=== PATIENT | female | born 1970 | race Caucasian/White ===

== ENCOUNTER 2016-09-22 21:16 | Observation (INO) | payer OTHER ==
[2016-09-22 23:30] LABS: Basophils % (A) 0 %; CH 29.7; CHCM 33.5; Eosinophils # (A) 0.3 k/uL (0-0.7); Eosinophils % (A) 3 %; HCT 44.7 % (34.0-46.0); HDW 2.75; HGB 14.8 gm/dL (11.4-16.0); Luc # (Auto) 0.17; Luc % (Auto) 2; Lymphocytes # (A) 1.7 k/uL (1.0-4.8); Lymphocytes % (A) 20 %; MCH 29.4 pg (25.0-35.0); Mean Platelet Volume 7.4; Monocytes # (A) 0.3 k/uL (0-1.0); Monocytes % (A) 3 %; Neutrophils # (A) 6.2 k/uL (1.3-7.7); Neutrophils % (A) 72 %; RBC 5.02 m/uL (3.80-5.40); RDW 14.2 % (11.5-15.5); WBC 8.7 k/uL (3.8-10.6); WBC (Perox) 8.55
[2016-09-22 23:46] LABS: ALT 33 U/L (9-52); AST 23 U/L (14-36); Alkaline Phosphatase 65 U/L (38-126); Anion Gap 7 mmol/L; Blood Urea Nitrogen 17 mg/dL (7-17); Calcium 9.2 mg/dL (8.4-10.2); Carbon Dioxide 29 mmol/L (22-30); Chloride 103 mmol/L (98-107); Glucose 102 mg/dL (74-99); Non-African American GFR(MDRD) >60 (>60 ml/min/1.73 sqM); Potassium 4.5 mmol/L (3.5-5.1); Sodium 139 mmol/L (137-145); Total Bilirubin 0.4 mg/dL (0.2-1.3); Total Protein 6.5 g/dL (6.3-8.2)
--- NOTE | 2016-09-22 23:46 | ED ---
Lower Extremity Injury HPI - General Source: patient, EMS Mode of arrival: EMS Limitations: no limitations <Molly Ennis - Last Filed: 09/23/16 02:42> <Jeff Beltran - Last Filed: 09/23/16 03:05> - General Chief Complaint: Extremity Injury, Lower Stated Complaint: KNEE PAIN Time Seen by Provider: 09/22/16 22:30 - History of Present Illness Initial Comments: Patient is a morbidly obese 46-year-old female with chief complaint of bilateral knee pain. Patient reports is if she feels that there is an abscess in her knee. Patient states that her left leg is worse than her right. She states that she hasn't been able to walk for the past 3 days due to the pain. Patient states that she has not been able to walk to take a shower and has to urinate in a bucket next to her bed. Patient states that the pain is worse with flexion and extension of the knee. She denies any foot or ankle pain. Patient reports that she also has some mild chest pain and short of breath. Patient states that this is usual for her. She denies any acute change in this. (Molly Ennis) - Related Data Home Medications Medication Instructions Recorded Confirmed ARIPiprazole [Abilify] 30 mg PO DAILY 06/03/14 09/22/16 Lisdexamfetamine Dimesylate 70 mg PO DAILY 06/03/14 09/22/16 [Vyvanse] Lisinopril [Zestril] 20 mg PO DAILY 06/03/14 09/22/16 Ibuprofen [Motrin] 800 mg PO Q8HR PRN 11/21/14 09/22/16 Furosemide [Lasix] 40 mg PO DAILY 09/22/16 09/22/16 traMADol HCL [Ultram] 50 mg PO Q6HR PRN 09/22/16 09/22/16 Allergies Allergy/AdvReac Type Severity Reaction Status Date / Time lamotrigine [From Lamictal] Allergy Rash/Hives Verified 09/22/16 22:21 Penicillins Allergy Anaphylaxis Verified 09/22/16 22:21 sulfamethoxazole Allergy Anaphylaxis Verified 09/22/16 22:21 [From Bactrim] trimethoprim [From Bactrim] Allergy Anaphylaxis Verified 09/22/16 22:21 Review of Systems ROS Other: All systems not noted in ROS Statement are negative. <Molly Ennis - Last Filed: 09/23/16 02:42> ROS Other: All systems not noted in ROS Statement are negative. <Jamar Beltrane Star - Last Filed: 09/23/16 03:05> ROS Statement: Those systems with pertinent positive or pertinent negative responses have been documented in the HPI. Past Medical History Past Medical History: Fibromyalgia, Hypertension, Osteoarthritis (OA), Seizure Disorder Additional Past Medical History / Comment(s): ddd, neuropathy adhd obesity bipolar History of Any Multi-Drug Resistant Organisms: MRSA Date of last positivie culture/infection: 2006 MDRO Source:: arm/skin Past Surgical History: Tubal Ligation Additional Past Surgical History / Comment(s): EGD Past Anesthesia/Blood Transfusion Reactions: No Reported Reaction Additional Past Anesthesia/Blood Transfusion Reaction / Comment(s): Pt has never recieved blood. Past Psychological History: ADD/ADHD, Anxiety, Bipolar, Depression Additional Psychological History / Comment(s): Pt states her current medication regime is working well for her mental health illnesses. She lives in a farmhouse with her fiancee and her son and his 15 yr old orestes. She is normally independent. She uses no assistive devices. She has no home care. She does not drive. Smoking Status: Current every day smoker Past Alcohol Use History: None Reported Additional Past Alcohol Use History / Comment(s): Pt states she started smoking at age 20. She has quit off and on over the yrs from 6months to a year. She is currently smoking 1/2 ppd. Past Drug Use History: None Reported Additional Drug Use History / Comment(s): Pt has medical marijuana which she states helps her seizure disorder and diabetes. She uses marijuana oil in cookies. - Past Family History Father Family Medical History: No Reported History Mother Family Medical History: Cancer Additional Family Medical History / Comment(s): Mother at age 56 yrs of lung cancer with brain mets. <Molly Ennis - Last Filed: 09/23/16 02:42> General Exam Limitations: no limitations <Molly Ennis - Last Filed: 09/23/16 02:42> General appearance: alert, in no apparent distress Head exam: Present: atraumatic, normocephalic, normal inspection Eye exam: Present: normal appearance, PERRL, EOMI. Absent: scleral icterus, conjunctival injection, periorbital swelling ENT exam: Present: normal exam, mucous membranes moist Neck exam: Present: normal inspection. Absent: tenderness, meningismus, lymphadenopathy Respiratory exam: Present: normal lung sounds bilaterally. Absent: respiratory distress, wheezes, rales, rhonchi, stridor Cardiovascular Exam: Present: regular rate, normal rhythm, normal heart sounds. Absent: systolic murmur, diastolic murmur, rubs, gallop, clicks GI/Abdominal exam: Present: soft, normal bowel sounds. Absent: distended, tenderness, guarding, rebound, rigid Extremities exam: Present: normal inspection, full ROM, normal capillary refill. Absent: tenderness, pedal edema, joint swelling, calf tenderness Back exam: Present: normal inspection Neurological exam: Present: alert, oriented X3, CN II-XII intact Psychiatric exam: Present: normal affect, normal mood Skin exam: Present: warm, dry, intact, normal color. Absent: rash <Jeff Beltran - Last Filed: 09/23/16 03:05> Medical Decision Making - Lab Data Result diagrams: 09/22/16 23:10 09/22/16 23:10 - Radiology Data Radiology results: report reviewed <Molly Ennis - Last Filed: 09/23/16 02:42> - Lab Data Result diagrams: 09/22/16 23:10 09/22/16 23:10 <Jeff Beltran - Last Filed: 09/23/16 03:05> - Medical Decision Making [facility] the ER for reevaluation chest pain, mild risk for heart disease. Initial troponin and EKG are negative. Patient will be admitted for cardiac observation serial troponins latrine anticoagulation. CT negative for PE ( Jeff Beltran) - Lab Data Lab Results 09/22/16 09/22/16 09/22/16 Range/Units 23:10 23:10 23:10 WBC 8.7 (3.8-10.6) k/uL RBC 5.02 (3.80-5.40) m/uL Hgb 14.8 (11.4-16.0) gm/dL Hct 44.7 (34.0-46.0) % MCV 89.0 (80.0-100.0) fL MCH 29.4 (25.0-35.0) pg MCHC 33.0 (31.0-37.0) g/dL RDW 14.2 (11.5-15.5) % Plt Count 223 (150-450) k/uL Neutrophils % 72 % Lymphocytes % 20 % Monocytes % 3 % Eosinophils % 3 % Basophils % 0 % Neutrophils # 6.2 (1.3-7.7) k/uL Lymphocytes # 1.7 (1.0-4.8) k/uL Monocytes # 0.3 (0-1.0) k/uL Eosinophils # 0.3 (0-0.7) k/uL Basophils # 0.0 (0-0.2) k/uL PT (9.0-12.0) sec INR (<1.1) APTT (22.0-30.0) sec D-Dimer 1.46 H (<0.60) mg/L FEU Sodium 139 (137-145) mmol/L Potassium 4.5 (3.5-5.1) mmol/L Chloride 103 (98-107) mmol/L Carbon Dioxide 29 (22-30) mmol/L Anion Gap 7 mmol/L BUN 17 (7-17) mg/dL Creatinine 0.70 (0.52-1.04) mg/dL Est GFR (MDRD) Af Amer >60 (>60 ml/min/1.73 sqM) Est GFR (MDRD) Non-Af >60 (>60 ml/min/1.73 sqM) Glucose 102 H (74-99) mg/dL Calcium 9.2 (8.4-10.2) mg/dL Magnesium 2.1 (1.6-2.3) mg/dL Total Bilirubin 0.4 (0.2-1.3) mg/dL AST 23 (14-36) U/L ALT 33 (9-52) U/L Alkaline Phosphatase 65 (38-126) U/L Total Creatine Kinase (30-135) U/L CK-MB (CK-2) (0.0-2.4) ng/mL CK-MB (CK-2) Rel Index Troponin I (0.000-0.034) ng/mL NT-Pro-B Natriuret Pep pg/mL Total Protein 6.5 (6.3-8.2) g/dL Albumin 3.4 L (3.5-5.0) g/dL Amylase 45 (30-110) U/L 09/22/16 09/22/16 09/22/16 Range/Units 23:10 23:10 23:10 WBC (3.8-10.6) k/uL RBC (3.80-5.40) m/uL Hgb (11.4-16.0) gm/dL Hct (34.0-46.0) % MCV (80.0-100.0) fL MCH (25.0-35.0) pg MCHC (31.0-37.0) g/dL RDW (11.5-15.5) % Plt Count (150-450) k/uL Neutrophils % % Lymphocytes % % Monocytes % % Eosinophils % % Basophils % % Neutrophils # (1.3-7.7) k/uL Lymphocytes # (1.0-4.8) k/uL Monocytes # (0-1.0) k/uL Eosinophils # (0-0.7) k/uL Basophils # (0-0.2) k/uL PT 9.5 (9.0-12.0) sec INR 0.9 (<1.1) APTT 22.4 (22.0-30.0) sec D-Dimer (<0.60) mg/L FEU Sodium (137-145) mmol/L Potassium (3.5-5.1) mmol/L Chloride (98-107) mmol/L Carbon Dioxide (22-30) mmol/L Anion Gap mmol/L BUN (7-17) mg/dL Creatinine (0.52-1.04) mg/dL Est GFR (MDRD) Af Amer (>60 ml/min/1.73 sqM) Est GFR (MDRD) Non-Af (>60 ml/min/1.73 sqM) Glucose (74-99) mg/dL Calcium (8.4-10.2) mg/dL Magnesium (1.6-2.3) mg/dL Total Bilirubin (0.2-1.3) mg/dL AST (14-36) U/L ALT (9-52) U/L Alkaline Phosphatase (38-126) U/L Total Creatine Kinase 38 (30-135) U/L CK-MB (CK-2) 0.6 (0.0-2.4) ng/mL CK-MB (CK-2) Rel Index 1.6 Troponin I <0.012 (0.000-0.034) ng/mL NT-Pro-B Natriuret Pep 95 pg/mL Total Protein (6.3-8.2) g/dL Albumin (3.5-5.0) g/dL Amylase (30-110) U/L 09/23/16 02:04 EKG shows normal sinus rhythm. Can't rule out an anterior infarct. Ventricular rate of 84 bpm. Normal 1 mL 4 ms. QRS ration 70 ms. QTC is QTc is 410/44 ms. No evidence of ST elevation or T-wave inversion. (Molly Ennis) - Radiology Data Bilateral knee shows tricompartmental degeneration bilaterally. Most severe in the medial compartment of the right knee. Bilateral joint effusions. Ultrasound of bilateral lower extremities are negative for DVT. Chest x-ray shows borderline cardiomegaly. No acute pulmonary disease on limited exam. CT PERDOMO chest Nondiagnostic for PE. No aortic dissection. No acute pulmonary disease. (Molly Ennis) Critical Care Time Critical Care Time: Yes Total Critical Care Time: 31 <Jeff Beltran - Last Filed: 09/23/16 03:05> Disposition <Molly Ennis - Last Filed: 09/23/16 02:42> <Jeff Beltran - Last Filed: 09/23/16 03:05> Clinical Impression: Chest pain Disposition: ADMITTED IP TO THIS HOSP Condition: Undetermined Referrals: None,Stated [Primary Care Provider] - 1-2 days
[2016-09-22] MEDS ORDERED: IBUPROFEN 600 MG TAB PO STA (23:49)
[2016-09-22] MEDS ORDERED: SODIUM CHLORIDE 0.9% 1,000 ML IV STA (23:51)
--- NOTE | 2016-09-22 23:57 | XR ---
EXAM: XR Left Knee, 3 views. XR Right Knee, 3 views. CLINICAL HISTORY: Reason: Pain TECHNIQUE: Three views of the bilateral knees. COMPARISON: No relevant prior studies available. FINDINGS/IMPRESSION: No fracture or dislocation of either knee. Tricompartmental degeneration bilaterally, most severe in the medial compartment of the right knee. Bilateral joint effusions.
[2016-09-23 00:12] LABS: Amylase 45 U/L (30-110); Magnesium 2.1 mg/dL (1.6-2.3)
[2016-09-23 00:13] LABS: INR 0.9 (<1.1); Partial Thromboplastin Time 22.4 sec (22.0-30.0); Prothrombin Time 9.5 sec (9.0-12.0)
[2016-09-23 00:14] LABS: Creatine Kinase 38 U/L (30-135)
[2016-09-23 00:27] LABS: Creatine Kinase MB 0.6 ng/mL (0.0-2.4); Troponin I <0.012 ng/mL (0.000-0.034)
--- NOTE | 2016-09-23 01:00 | US ---
EXAM: US Duplex Bilateral Lower Extremity Veins. CLINICAL HISTORY: Reason: Pain TECHNIQUE: Real-time ultrasound scan of the veins of the bilateral lower extremities with color Doppler flow, spectral waveform analysis and compression. COMPARISON: No relevant prior studies available. FINDINGS: Deep veins: Unremarkable. No DVT in the common femoral, femoral or popliteal veins. Superficial veins: Unremarkable. No thrombus in the visualized greater saphenous veins. Soft tissues: No acute findings. No popliteal cyst. IMPRESSION: No deep venous thrombosis in the bilateral lower extremities.
[2016-09-23] MEDS ORDERED: HYDROmorphone 1 MG/ML 1 ML SYRINGE IVP STA (01:05)
[2016-09-23] MEDS ORDERED: ONDANSETRON 4 MG/2 ML VIAL IVP STA (01:05)
--- NOTE | 2016-09-23 01:16 | XR ---
EXAM: XR Chest, 2 Views. CLINICAL HISTORY: Reason: Chest Pain TECHNIQUE: Frontal and lateral views of the chest. COMPARISON: No relevant prior studies available. FINDINGS: Lungs: No clear consolidation on exam that is limited due to obese body habitus. Pleural spaces: Unremarkable. No pneumothorax. Heart: Borderline cardiomegaly. Mediastinum: Unremarkable. Bones: Mild thoracic wedge deformities are favored to be chronic. No acute fracture. IMPRESSION: Borderline cardiomegaly. No clear acute pulmonary disease on limited exam
[2016-09-23] MEDS ORDERED: RX INFO: IV CONTRAST WAS GIVEN 1 EACH MISC MISCELLANE PRN (01:24)
--- NOTE | 2016-09-23 02:37 | CT ---
EXAM: CT Angiography Chest With Intravenous Contrast. CLINICAL HISTORY: Reason: Pain TECHNIQUE: Axial computed tomographic angiography images of the chest with intravenous contrast using pulmonary embolism protocol. CTDI is 24.3 mGy and DLP is 933 mGy-cm This CT exam was performed using one or more of the following dose reduction techniques: automated exposure control, adjustment of the mA and/or kV according to patient size, and/or use of iterative reconstruction technique. MIP reconstructed images were created and reviewed. COMPARISON: No relevant prior studies available. FINDINGS: The examination is nondiagnostic for pulmonary embolism due to bolus timing. No dissection or other acute aortic syndrome. There are calcified pulmonary and mediastinal granulomas. No evidence of acute pulmonary infection. Borderline cardiomegaly. No fracture or suspicious osseous lesion. IMPRESSION: Nondiagnostic for PE. No aortic dissection. No acute pulmonary disease.
[2016-09-23] MEDS ORDERED: NALOXONE 0.4 MG/ML 1 ML VIAL IV PRN (03:06)
[2016-09-23] MEDS ORDERED: ONDANSETRON 4 MG/2 ML VIAL IVP PRN (03:06)
[2016-09-23] MEDS ORDERED: traMADol 50 MG TAB PO PRN (03:08)
[2016-09-23] MEDS ORDERED: SODIUM CHLORIDE 0.9% 1,000 ML IV SCH (03:15)
[2016-09-23] MEDS: HYDROmorphone 1 MG/ML 1 ML SYRINGE IV PRN ×3 (04:11→09:38)
[2016-09-23 04:30] VITALS: BMI 53.2
[2016-09-23] MEDS: KETOROLAC 30 MG/ML 1 ML VIAL IVP PRN ×2 (05:26→11:53)
[2016-09-23 06:10] LABS: Creatine Kinase 32 U/L (30-135)
[2016-09-23 06:24] LABS: Creatine Kinase MB 0.5 ng/mL (0.0-2.4); Troponin I <0.012 ng/mL (0.000-0.034)
[2016-09-23 07:45] VITALS: BP 129/72; PULSE 70; RESP 18; TEMP 98.2
[2016-09-23] MEDS ORDERED: ARIPiprazole 15 MG TAB PO SCH (09:00)
[2016-09-23] MEDS ORDERED: LISINOPRIL 20 MG TAB PO SCH (09:00)
[2016-09-23] MEDS ORDERED: PANTOPRAZOLE 40 MG/10 ML VIAL IV SCH (09:00)
[2016-09-23] MEDS ORDERED: NON-FORMULARY DRUG (Lisdexamfetamine Dimesylate [Vyvanse] 70 MG) PO SCH (09:00)
[2016-09-23] MEDS ORDERED: ENOXAPARIN 40 MG/0.4 ML SYRINGE SQ SCH (09:00)
[2016-09-23] MEDS ORDERED: FUROSEMIDE 40 MG TAB PO SCH (09:00)
--- NOTE | 2016-09-23 09:16 | CONS ---
DATE OF CONSULTATION: Ava is a 46-year-old lady with history of arthritis, hypertension who came to hospital primarily complaining of bilateral knee pain and incidentally complained of both the chest discomfort that she had over the last one month and chest discomfort is reproducible and seems musculoskeletal. At the time of my evaluation, she is pain free and hemodynamically stable. She has had 2 sets of cardiac enzymes that are both within normal limits. EKG that did not reveal any ischemic changes. She had a D-dimer that was elevated; hence, she had a CTA that was negative for dissection and pulmonary embolism. EKG does not reveal acute ischemic changes. She had a venous duplex study that is negative for DVT. Past medical history is significant for hypertension. Medications include tramadol, Zestril, Motrin, Lasix and Abilify. ALLERGIES: There are multiple drug allergies including PENICILLIN, BACTRIM, LAMICTAL. Family history is significant for coronary artery disease. SOCIAL HISTORY: Denies smoking. REVIEW OF SYSTEMS: HEENT: Unremarkable. CARDIAC: As described above. RESPIRATORY: Negative. GI: Negative. GENITOURINARY: Negative. MUSCULOSKELETAL: Significant for joint pain. PSYCHOSOCIAL: Negative. ENDOCRINE: Negative. DERMATOLOGY: Negative. CONSTITUTIONAL: Negative. ONCOLOGICAL: Negative. The rest of the system review is not relevant. On exam, comfortable at rest. Vital signs are stable. There is no jugular venous distention. Carotid upstroke is normal. There is no bruit. Chest exam reveals good air entry bilaterally. Heart exam reveals first and second heart sounds. No gallop. No murmur, no rub. Abdomen is soft, nontender. Exam of the extremities did not reveal any edema. Peripheral pulses are felt. HOME HEALTH RN exam did not reveal focal neurological deficits. Labs show that tropes are negative. Creatinine is 0.7. Potassium is 4.5. Hemoglobin is 14.8. D-dimer is slightly elevated. CT chest is negative. ASSESSMENT: 1. Atypical chest pain. 2. Bilateral knee pain, probably related to arthritis. PLAN: From cardiac standpoint, she is doing well and does not require further workup at this time. I will obtain a 2-D echo on her. I will consider an outpatient stress test if necessary.
[2016-09-23] MEDS ORDERED: methylPREDNISolone ACETATE 80 MG/ML 1 ML VIAL INTRAARTIC STA (09:17)
[2016-09-23] MEDS ORDERED: LIDOCAINE 1% INJ 10MG/ML (20 ML MDV) IM ONE (09:30)
--- NOTE | 2016-09-23 10:13 | P.CNOR ---
History of Present Illness - [facility] Consult date: 09/23/16 Consult reason: joint pain (bilateral knee pain) History of present illness: Patient is a 46-year-old morbidly obese female seen at bedside this morning. She states that she developed progressive bilateral knee pain approximately 2 weeks ago. She denies any acute trauma or injury to either knee. She states her left knee is worse than her right knee. She got to the point where she had difficulty with weightbearing and ambulating yesterday and thus presented to the emergency department [facility]. She has denied any wounds to either knee. She denies fever or chills. She has no calf pain. She denies numbness and tingling. She has no other complaints.Review of systems negative for fever, chills, chest pain, shortness breath, nausea, vomiting, headaches or other. Review of Systems All systems: negative Constitutional: Denies chills, Denies fever Eyes: denies blurred vision, denies pain Ears, nose, mouth and throat: Denies headache, Denies sore throat Cardiovascular: Denies chest pain, Denies shortness of breath Respiratory: Denies cough Gastrointestinal: Denies abdominal pain, Denies diarrhea, Denies nausea, Denies vomiting Genitourinary: Denies dysuria, Denies hematuria Musculoskeletal: Denies myalgias Integumentary: Denies pruritus, Denies rash Neurological: Denies numbness, Denies weakness Psychiatric: Denies anxiety, Denies depression Endocrine: Denies fatigue, Denies weight change Past Medical History Past Medical History: Fibromyalgia, Hypertension, Osteoarthritis (OA), Seizure Disorder Additional Past Medical History / Comment(s): ddd, neuropathy adhd obesity History of Any Multi-Drug Resistant Organisms: MRSA Year Discovered:: 2006 MDRO Source:: arm/skin Past Surgical History: Tubal Ligation Additional Past Surgical History / Comment(s): EGD Past Anesthesia/Blood Transfusion Reactions: No Reported Reaction Additional Past Anesthesia/Blood Transfusion Reaction / Comm: Pt has never recieved blood. Past Psychological History: ADD/ADHD, Anxiety, Bipolar, Depression Additional Psychological History / Comment(s): Pt states her current medication regime is working well for her mental health illnesses. She lives in a farmhouse with her fishivanie and her son and his 15 yr old orestes. She is normally independent. She uses no assistive devices. She has no home care. She does not drive. Smoking Status: Current every day smoker Past Alcohol Use History: None Reported Additional Past Alcohol Use History / Comment(s): Pt states she started smoking at age 20. She has quit off and on over the yrs from 6months to a year. She is currently smoking 1/2 ppd. Past Drug Use History: None Reported Additional Drug Use History / Comment(s): Pt has medical marijuana which she states helps her seizure disorder and diabetes. She uses marijuana oil in cookies. - Past Family History Father Family Medical History: No Reported History Mother Family Medical History: Cancer Additional Family Medical History / Comment(s): Mother at age 56 yrs of lung cancer with brain mets. Medications and Allergies Home Medications Medication Instructions Recorded Confirmed Type ARIPiprazole [Abilify] 30 mg PO DAILY 06/03/14 09/22/16 History Lisdexamfetamine Dimesylate 70 mg PO DAILY 06/03/14 09/22/16 History [Vyvanse] Lisinopril [Zestril] 20 mg PO DAILY 06/03/14 09/22/16 History Ibuprofen [Motrin] 800 mg PO Q8HR PRN 11/21/14 09/22/16 History Furosemide [Lasix] 40 mg PO DAILY 09/22/16 09/22/16 History traMADol HCL [Ultram] 50 mg PO Q6HR PRN 09/22/16 09/22/16 History Allergies Allergy/AdvReac Type Severity Reaction Status Date / Time lamotrigine [From Lamictal] Allergy Rash/Hives Verified 09/22/16 22:21 Penicillins Allergy Anaphylaxis Verified 09/22/16 22:21 sulfamethoxazole Allergy Anaphylaxis Verified 09/22/16 22:21 [From Bactrim] trimethoprim [From Bactrim] Allergy Anaphylaxis Verified 09/22/16 22:21 Physical Examination Inspection of bilateral lower extremities including the knees show no signs of infectious or acute process. There is no erythema, ecchymoses, wounds or lacerations. The knee joints or not hot to touch. There is minimal joint line tenderness on either knee. Patellar tracking is normal. Negative patellar apprehension. There is mild effusions bilaterally. She has full extension with no pain. Flexion is 110 bilaterally with pain at endpoint. Both knees are ligamentously stable with negative Silvina's and Alexis's.MCL and LCL are intact. Calves are soft and nontender. Sensation to light touch is intact throughout both lower extremities. Active motor is intact throughout bilateral lower extremities. She has 2+ dorsalis pedis pulses and less than 2 second capillary refill present. Results - Labs Result Diagrams: 09/22/16 23:10 09/22/16 23:10 - Diagnostic results Knee x-ray: report reviewed, image reviewed (no evidence of acute fractures or dislocations. Moderate degenerative joint disease and osteoarthritis seen in the 3 compartments of both knees.) Assessment and Plan (1) Osteoarthritis of knees, bilateral Narrative/Plan: I reviewed with the patient her findings with her x-rays and likely diagnosis of acute exacerbation of osteoarthritis and degenerative joint disease of her knees. She has a normal white count and is afebrile. The joints are not hot and do not appear infected. She has no history of gout and the exam does not appear to be an acute gout episode. Ultrasound of the lower extremities was negative for DVT as well. I offered bilateral intra-articular corticosteroid injections for her knees. The possible risks, complications and benefits of the injections were reviewed. She understood, acknowledged and desired to receive injections after given informed consent. The injections were performed utilizing sterile technique including skin preparation with chlorhexidine 2. 40 mg of Depo-Medrol with 3 mL of 1% plain lidocaine was injected at the superolateral patellar aspect of both knees. She tolerated the injections well without complication. I advised her on weight loss and activities that may exacerbate her knee pain. She may utilize nonsteroidal anti-inflammatory medications if approved by her primary care provider. She may follow up with Dr. Rodriguez as an outpatient for further evaluation and treatment. She may be discharged from an orthopedic standpoint. Thank you for the consult. Status: Acute Time with Patient: Greater than 30 (interviewing patient,examining patient, reviewing studies, performing bilateral knee corticosteroid steroid injections)
[2016-09-23 12:00] LABS: Creatine Kinase 40 U/L (30-135)
[2016-09-23 12:13] LABS: Creatine Kinase MB 0.6 ng/mL (0.0-2.4); Troponin I <0.012 ng/mL (0.000-0.034)
--- NOTE | 2016-09-23 17:03 | P.HPIM ---
History of Present Illness H&P Date: 09/23/16 (Discharge note as well) 46-year-old female with history of osteoarthritis, morbid obesity comes in to the emergency room with complains of bilateral lower extremity tenderness at the knees. Patient apparently has a history of osteoarthritis and has had bilateral knee effusions drain in the past. Patient also was complaining of some pressure in her chest with associated with difficulty breathing. Hence patient was hence admitted to the hospital for evaluation of chest pain. A CT angiogram was also done to rule out pulmonary embolism which was negative. EKG did not reveal any ST-T wave changes. Cardiac enzymes were negative. Patient underwent a stress test which was negative. Patient underwent a steroid injection in the bilateral knees. During the time of my evaluation patient states that she is symptom-free denies having any headaches, blurry vision, nausea, vomiting, diarrhea, chest pain, difficulty breathing. Review of Systems All systems: negative (HPI) Past Medical History Past Medical History: Fibromyalgia, Hypertension, Osteoarthritis (OA), Seizure Disorder Additional Past Medical History / Comment(s): ddd, neuropathy adhd obesity History of Any Multi-Drug Resistant Organisms: MRSA Date of last positivie culture/infection: 2006 MDRO Source:: arm/skin Past Surgical History: Tubal Ligation Additional Past Surgical History / Comment(s): EGD Past Anesthesia/Blood Transfusion Reactions: No Reported Reaction Additional Past Anesthesia/Blood Transfusion Reaction / Comment(s): Pt has never recieved blood. Past Psychological History: ADD/ADHD, Anxiety, Bipolar, Depression Additional Psychological History / Comment(s): Pt states her current medication regime is working well for her mental health illnesses. She lives in a farm[place] with her fiancee and her son and his 15 yr old orestes. She is normally independent. She uses no assistive devices. She has no home care. She does not drive. Smoking Status: Current every day smoker Past Alcohol Use History: None Reported Additional Past Alcohol Use History / Comment(s): Pt states she started smoking at age 20. She has quit off and on over the yrs from 6months to a year. She is currently smoking 1/2 ppd. Past Drug Use History: None Reported Additional Drug Use History / Comment(s): Pt has medical marijuana which she states helps her seizure disorder and diabetes. She uses marijuana oil in cookies. - Past Family History Father Family Medical History: No Reported History Mother Family Medical History: Cancer Additional Family Medical History / Comment(s): Mother at age 56 yrs of lung cancer with brain mets. Medications and Allergies Home Medications Medication Instructions Recorded Confirmed Type ARIPiprazole [Abilify] 30 mg PO DAILY 06/03/14 09/22/16 History Lisdexamfetamine Dimesylate 70 mg PO DAILY 06/03/14 09/22/16 History [Vyvanse] Furosemide [Lasix] 40 mg PO DAILY 09/22/16 09/22/16 History traMADol HCL [Ultram] 50 mg PO Q6HR PRN 09/22/16 09/22/16 History Allergies Allergy/AdvReac Type Severity Reaction Status Date / Time lamotrigine [From Lamictal] Allergy Rash/Hives Verified 09/22/16 22:21 Penicillins Allergy Anaphylaxis Verified 09/22/16 22:21 sulfamethoxazole Allergy Anaphylaxis Verified 09/22/16 22:21 [From Bactrim] trimethoprim [From Bactrim] Allergy Anaphylaxis Verified 09/22/16 22:21 Physical Exam Vitals: Vital Signs Temp Pulse Pulse Resp BP BP BP 09/23/16 07:42 98.2 F 70 18 129/72 09/23/16 04:00 18 09/23/16 03:55 98.7 F 77 16 117/79 09/23/16 03:45 98.4 F 80 16 143/74 Pulse Ox 09/23/16 07:42 94 L 09/23/16 04:00 09/23/16 03:55 95 09/23/16 03:45 94 L Intake and Output 09/23/16 09/23/16 09/23/16 06:59 14:59 22:59 Intake Total 880 Balance 880 Intake: Oral 880 Other: Voiding Method Toilet Weight 149.685 kg Physical exam Gen. appearance oriented 3 in no distress, morbidly obese Neck is supple no JVD Lungs good air entry clear to auscultation no rhonchi or wheezing Heart S1-S2 heard regular rate and rhythm no murmurs appreciated Abdomen is soft nontender no organomegaly bowel sounds are intact Neurologically cranial nerves II-12 grossly intact no focal motor or sensory deficits noted Musculoskeletal no tenderness noted on joint space examination bilateral knees no effusion appreciated on examination. Range of motion is within normal limits. Skin no abnormalities appreciated Results CBC & Chem 7: 09/22/16 23:10 09/22/16 23:10 Thrombosis Risk Factor Assmnt - Choose All That Apply Each Factor Represents 1 point: Obesity (BMI >25) Thrombosis Risk Factor Assessment Total Risk Factor Score: 1 Thrombosis Risk Factor Assessment Level: Low Risk Assessment and Plan Plan: #1 atypical chest pain ACS is ruled out #2 morbid obesity #3 osteoarthritis secondary to above #4 ADHD #5 history of hypertension #6 chronic opioid use #7 history of essential hypertension is controlled Plan Stress test was negative. Patient underwent a injection of the knee by orthopedic surgery. Patient is discharged home in a stable condition.
--- NOTE | 2016-09-24 10:11 | ECHOF ---
Referral Reason:cp MEASUREMENTS -------- HEIGHT: 167.6 cm WEIGHT: 149.7 kg BP: 104/79 RVIDd: 3.1 cm (< 3.3) IVSd: 1.6 cm (0.6 - 1.1) LVIDd: 4.4 cm (3.9 - 5.3) LVPWd: 1.6 cm (0.6 - 1.1) IVSs: 2.1 cm LVIDs: 3.1 cm LVPWs: 2.3 cm LA Diam: 3.3 cm (2.7 - 3.8) Ao Diam: 3.8 cm (2.0 - 3.7) AV Cusp: 2.0 cm (1.5 - 2.6) MV EXCURSION: 16.659 mm (> 18.000) MV EF SLOPE: 46 mm/s (70 - 150) EPSS: 0.5 cm MV E Oscar: 0.86 m/s MV DecT: 328 ms MV A Oscar: 0.99 m/s MV E/A Ratio: 0.87 FINDINGS -------- Sinus rhythm. This was a technically difficult study with suboptimal views. The left ventricular size is normal. There is moderate concentric left ventricular hypertrophy. Overall left ventricular systolic function is normal with, an EF between 55 - 60 %. The right ventricle is normal in size and function. The left atrial size is normal. The right atrium was not well visualized. 1.5mg of Definity was utilized for enhancement of images The aortic valve was not well visualized. Mild mitral annular calcification present. The tricuspid valve was not well visualized. The pulmonic valve was not well visualized. The aortic root is dilated measuring 3.8cm. There is no pericardial effusion. CONCLUSIONS -------- 1. Sinus rhythm. 2. The pulmonic valve was not well visualized. 3. The aortic root is dilated measuring 3.8cm. 4. There is no pericardial effusion. 5. This was a technically difficult study with suboptimal views. 6. There is moderate concentric left ventricular hypertrophy. 7. The left atrial size is normal. 8. The right atrium was not well visualized. 9. 1.5mg of Definity was utilized for enhancement of images 10. The aortic valve was not well visualized. 11. Mild mitral annular calcification present. 12. The tricuspid valve was not well visualized. A AND P TECHNICIAN: Suzy Davis RDCS
== END 2016-09-23 14:50 | disposition home or self-care (01) ==
LOC: EC 21:16 → 3OBS 09-23 03:05
PROVIDERS: ADMIT Internal Medicine; ATTEND Internal Medicine
DX: R07.89 Other chest pain (principal); M17.0 Bilateral primary osteoarthritis of knee; Z68.43 Body mass index [BMI] 50.0-59.9, adult; E66.01 Morbid (severe) obesity due to excess calories; F90.9 Attention-deficit hyperactivity disorder, unspecified type; I10 Essential (primary) hypertension; R05 Cough; F17.200 Nicotine dependence, unspecified, uncomplicated; M79.7 Fibromyalgia; G40.909 Epilepsy, unspecified, not intractable, without status epilepticus; F41.9 Anxiety disorder, unspecified; F31.9 Bipolar disorder, unspecified; E11.40 Type 2 diabetes mellitus with diabetic neuropathy, unspecified; F12.90 Cannabis use, unspecified, uncomplicated; Z86.14 Personal history of Methicillin resistant Staphylococcus aureus infection; Z82.49 Family history of ischemic heart disease and other diseases of the circulatory system; Z80.1 Family history of malignant neoplasm of trachea, bronchus and lung; Z79.891 Long term (current) use of opiate analgesic; Z79.899 Other long term (current) drug therapy; Z88.8 Allergy status to other drugs, medicaments and biological substances; Z88.0 Allergy status to penicillin; Z88.2 Allergy status to sulfonamides
CPT/HCPCS: 20610; 96372; 96361; 96374; 96375; 99291; 36415; 93005; 85379; 83880; 80053; 82150; 82550 ×2; 82553 ×2; 83735; 84484 ×2; 85025; 85610; 85730; 71020; 73562; 93970; 71275; G0378; C8929; J1040; Q9967; J2405; J2001; J1650; J1885; Q9957; J1170; C9113; 93306

== ENCOUNTER 2017-07-16 16:38 | Observation (INO) | payer OTHER ==
[2017-07-16] MEDS ORDERED: SODIUM CHLORIDE 0.9% 1,000 ML IV ONE (17:27)
[2017-07-16] MEDS ORDERED: ASPIRIN 81 MG PO STA (17:27)
[2017-07-16] MEDS ORDERED: MORPHINE SULFATE 2 MG/ML SYRINGE IVP ONE (17:27)
--- NOTE | 2017-07-16 17:37 | ED ---
General Adult HPI - General Chief complaint: Recheck/Abnormal Lab/Rx Stated complaint: Confused, Mental Health Time Seen by Provider: 07/16/17 16:53 Source: patient Mode of arrival: wheelchair - History of Present Illness Initial comments: This is a 46-year-old female with a history of multiple dental infections in poor dentition who presents emergency department for multiple complaints. Patient states that she's been having worsening pain in her mouth and is being treated for infection by nurse practitioner at her family doctor's office. She' s been on antibiotics however feels like the pain is getting worse and she cannot eat or drink. She has ulcerations her mouth. She states that she's also been having intermittent episodes of chest pain, dizziness, and shortness of breath on exertion. She states that she feels like she is "dying oh. She states that she also has having intermittent episodes of confusion. She states that she knows when she is going to become confused. She feels like it's stems from her bipolar disorder. The patient states that she came in because she feels like she needs to be fixed and does not know what else to do. She has Medicaid and is unable to get into a dentist anytime soon. She is also concerned about all the pain that she's having. She denies any fevers or chills. She states that she took her blood pressure medications earlier today. No other acute complaints at this time. - Related Data Home Medications Medication Instructions Recorded Confirmed ARIPiprazole [Abilify] 30 mg PO DAILY 06/03/14 07/16/17 Furosemide [Lasix] 40 mg PO DAILY PRN 09/22/16 07/16/17 traMADol HCL [Ultram] 50 mg PO Q6HR PRN 09/22/16 07/16/17 Lisdexamfetamine Dimesylate 50 mg PO DAILY 07/16/17 07/16/17 [Vyvanse] traZODone HCL 150 mg PO HS 07/16/17 07/16/17 Previous Rx's Medication Instructions Recorded Ibuprofen [Motrin] 800 mg PO Q8HR PRN #30 tablet 09/23/16 Lisinopril [Zestril] 20 mg PO DAILY #30 tab 09/23/16 Allergies Allergy/AdvReac Type Severity Reaction Status Date / Time lamotrigine [From Lamictal] Allergy Rash/Hives Verified 07/16/17 17:37 Penicillins Allergy Anaphylaxis Verified 07/16/17 17:37 sulfamethoxazole Allergy Anaphylaxis Verified 07/16/17 17:37 [From Bactrim] trimethoprim [From Bactrim] Allergy Anaphylaxis Verified 07/16/17 17:37 Review of Systems ROS Statement: Those systems with pertinent positive or pertinent negative responses have been documented in the HPI. ROS Other: All systems not noted in ROS Statement are negative. Past Medical History Past Medical History: Fibromyalgia, Hypertension, Osteoarthritis (OA), Seizure Disorder Additional Past Medical History / Comment(s): ddd, neuropathy adhd obesity History of Any Multi-Drug Resistant Organisms: MRSA Date of last positivie culture/infection: 2006 MDRO Source:: arm/skin Past Surgical History: Tubal Ligation Additional Past Surgical History / Comment(s): EGD Past Anesthesia/Blood Transfusion Reactions: No Reported Reaction Additional Past Anesthesia/Blood Transfusion Reaction / Comment(s): Pt has never recieved blood. Past Psychological History: ADD/ADHD, Anxiety, Bipolar, Depression Smoking Status: Current every day smoker Past Alcohol Use History: None Reported Past Drug Use History: None Reported - Past Family History Father Family Medical History: No Reported History Mother Family Medical History: Cancer Additional Family Medical History / Comment(s): Mother at age 56 yrs of lung cancer with brain mets. General Exam - General Exam Comments Initial Comments: Constitutional: Awake alert appears comfortable however is very tearful when speaking Head: Normocephalic atraumatic Eyes: no conjunctival injection No scleral icterus EOMI ENT: Patient has multiple dental caries to the lower teeth. There are ulcerations involving the base of her tongue bilaterally and also her lower lip. Neck: No JVD Supple Heart: Regular rate rhythm normal S1-S2 no murmurs Lungs: Clear to auscultation bilaterally No wheezing No rales Abdomen: Soft nondistended nontender, obese Extremities: Non edematous DP pulses intact Radial pulses intact Neuro: A&Ox3 No focal neurologic deficits Psych: She is very tearful and seems to be tangential at times with her thoughts. Difficult to follow the flow of her conversation when listening to her. Course Vital Signs 07/16/17 07/16/17 07/16/17 16:55 17:23 18:39 Temperature 97.7 F Pulse Rate 74 62 Pulse Rate [ 67 Cherry Grower ] Respiratory 18 18 Rate Blood Pressure 137/92 164/89 O2 Sat by Pulse 99 98 Oximetry 07/16/17 07/16/17 07/16/17 18:54 19:15 20:04 Temperature Pulse Rate 69 60 69 Pulse Rate [ Cherry Grower ] Respiratory 20 18 18 Rate Blood Pressure 176/102 176/84 161/90 O2 Sat by Pulse 99 100 100 Oximetry Medical Decision Making - Medical Decision Making Is a 46-year-old female who presents emergency department for multiple complaints including chest pain, shortness of breath, dizziness, visual changes , and worsening of her bipolar. The patient was evaluated with multiple tests all of which were unremarkable at this time. Chest x-ray and CT of the head were negative. Troponin negative. EKG was unremarkable. The patient is obese and has a history of hypertension. She has risk factors for heart disease. I do not suspect that this is angina at this time however cannot send the patient home due to her risk. I like to keep her in the hospital. She was given an aspirin. Spoke with Dr. Cage who accepted the admission. At this time going to hold off on heparin and just trend troponins. I did place a psych consult for her bipolar. Further orders per Dr. Cage. - Lab Data Result diagrams: 07/16/17 17:51 07/16/17 17:51 Lab Results 07/16/17 07/16/17 07/16/17 Range/Units 17:51 17:51 17:51 WBC 7.1 (3.8-10.6) k/uL RBC 4.80 (3.80-5.40) m/uL Hgb 14.0 (11.4-16.0) gm/dL Hct 44.1 (34.0-46.0) % MCV 92.0 (80.0-100.0) fL MCH 29.2 (25.0-35.0) pg MCHC 31.7 (31.0-37.0) g/dL RDW 15.7 H (11.5-15.5) % Plt Count 217 (150-450) k/uL Neutrophils % 62 % Lymphocytes % 26 % Monocytes % 5 % Eosinophils % 5 % Basophils % 1 % Neutrophils # 4.4 (1.3-7.7) k/uL Lymphocytes # 1.8 (1.0-4.8) k/uL Monocytes # 0.4 (0-1.0) k/uL Eosinophils # 0.3 (0-0.7) k/uL Basophils # 0.0 (0-0.2) k/uL PT (9.0-12.0) sec INR (<1.2) APTT (22.0-30.0) sec Sodium 139 (137-145) mmol/L Potassium 4.5 (3.5-5.1) mmol/L Chloride 103 (98-107) mmol/L Carbon Dioxide 30 (22-30) mmol/L Anion Gap 6 mmol/L BUN 9 (7-17) mg/dL Creatinine 0.66 (0.52-1.04) mg/dL Est GFR (MDRD) Af Amer >60 (>60 ml/min/1.73 sqM) Est GFR (MDRD) Non-Af >60 (>60 ml/min/1.73 sqM) Glucose 102 H (74-99) mg/dL Calcium 8.9 (8.4-10.2) mg/dL Magnesium 2.1 (1.6-2.3) mg/dL Total Bilirubin 0.3 (0.2-1.3) mg/dL AST 24 (14-36) U/L ALT 34 (9-52) U/L Alkaline Phosphatase 76 (38-126) U/L CK-MB (CK-2) 1.4 (0.0-2.4) ng/mL Troponin I <0.012 (0.000-0.034) ng/mL NT-Pro-B Natriuret Pep pg/mL Total Protein 6.5 (6.3-8.2) g/dL Albumin 3.3 L (3.5-5.0) g/dL Lipase 61 (23-300) U/L Urine Color Urine Appearance (Clear) Urine pH (5.0-8.0) Ur Specific [place] (1.001-1.035) Urine Protein (Negative) Urine Glucose (UA) (Negative) Urine Ketones (Negative) Urine Blood (Negative) Urine Nitrite (Negative) Urine Bilirubin (Negative) Urine Urobilinogen (<2.0) mg/dL Ur Leukocyte Esterase (Negative) Urine RBC (0-5) /hpf Urine WBC (0-5) /hpf Ur Squamous Epith Cells (0-4) /hpf Urine Bacteria (None) /hpf Hyaline Casts (0-2) /lpf Urine Mucus (None) /hpf Urine Opiates Screen (NotDetected) Ur Oxycodone Screen (NotDetected) Urine Methadone Screen (NotDetected) Ur Propoxyphene Screen (NotDetected) Ur Barbiturates Screen (NotDetected) U Tricyclic Antidepress (NotDetected) Ur Phencyclidine Scrn (NotDetected) Ur Amphetamines Screen (NotDetected) U Methamphetamines Scrn (NotDetected) U Benzodiazepines Scrn (NotDetected) Urine Cocaine Screen (NotDetected) U Marijuana (THC) Screen (NotDetected) 07/16/17 07/16/17 07/16/17 Range/Units 17:51 17:51 19:29 WBC (3.8-10.6) k/uL RBC (3.80-5.40) m/uL Hgb (11.4-16.0) gm/dL Hct (34.0-46.0) % MCV (80.0-100.0) fL MCH (25.0-35.0) pg MCHC (31.0-37.0) g/dL RDW (11.5-15.5) % Plt Count (150-450) k/uL Neutrophils % % Lymphocytes % % Monocytes % % Eosinophils % % Basophils % % Neutrophils # (1.3-7.7) k/uL Lymphocytes # (1.0-4.8) k/uL Monocytes # (0-1.0) k/uL Eosinophils # (0-0.7) k/uL Basophils # (0-0.2) k/uL PT 9.9 (9.0-12.0) sec INR 1.0 (<1.2) APTT 22.9 (22.0-30.0) sec Sodium (137-145) mmol/L Potassium (3.5-5.1) mmol/L Chloride (98-107) mmol/L Carbon Dioxide (22-30) mmol/L Anion Gap mmol/L BUN (7-17) mg/dL Creatinine (0.52-1.04) mg/dL Est GFR (MDRD) Af Amer (>60 ml/min/1.73 sqM) Est GFR (MDRD) Non-Af (>60 ml/min/1.73 sqM) Glucose (74-99) mg/dL Calcium (8.4-10.2) mg/dL Magnesium (1.6-2.3) mg/dL Total Bilirubin (0.2-1.3) mg/dL AST (14-36) U/L ALT (9-52) U/L Alkaline Phosphatase (38-126) U/L CK-MB (CK-2) (0.0-2.4) ng/mL Troponin I (0.000-0.034) ng/mL NT-Pro-B Natriuret Pep 200 pg/mL Total Protein (6.3-8.2) g/dL Albumin (3.5-5.0) g/dL Lipase (23-300) U/L Urine Color Yellow Urine Appearance Cloudy H (Clear) Urine pH 6.0 (5.0-8.0) Ur Specific [place] 1.024 (1.001-1.035) Urine Protein Trace H (Negative) Urine Glucose (UA) Negative (Negative) Urine Ketones Negative (Negative) Urine Blood Negative (Negative) Urine Nitrite Negative (Negative) Urine Bilirubin Negative (Negative) Urine Urobilinogen 6.0 (<2.0) mg/dL Ur Leukocyte Esterase Trace H (Negative) Urine RBC 1 (0-5) /hpf Urine WBC 2 (0-5) /hpf Ur Squamous Epith Cells 14 H (0-4) /hpf Urine Bacteria Rare H (None) /hpf Hyaline Casts 8 H (0-2) /lpf Urine Mucus Many H (None) /hpf Urine Opiates Screen Detected H (NotDetected) Ur Oxycodone Screen Not Detected (NotDetected) Urine Methadone Screen Not Detected (NotDetected) Ur Propoxyphene Screen Not Detected (NotDetected) Ur Barbiturates Screen Not Detected (NotDetected) U Tricyclic Antidepress Not Detected (NotDetected) Ur Phencyclidine Scrn Not Detected (NotDetected) Ur Amphetamines Screen Detected H (NotDetected) U Methamphetamines Scrn Not Detected (NotDetected) U Benzodiazepines Scrn Detected H (NotDetected) Urine Cocaine Screen Not Detected (NotDetected) U Marijuana (THC) Screen Detected H (NotDetected) Disposition Clinical Impression: Chest pain, Bipolar 1 disorder Disposition: ADMITTED IP TO THIS [facility] Condition: Stable
[2017-07-16 18:01] LABS: Basophils % (A) 1 %; Eosinophils # (A) 0.3 k/uL (0-0.7); Eosinophils % (A) 5 %; HCT 44.1 % (34.0-46.0); Lymphocytes # (A) 1.8 k/uL (1.0-4.8); Lymphocytes % (A) 26 %; MCH 29.2 pg (25.0-35.0); MCHC 31.7 g/dL (31.0-37.0); Mean Platelet Volume 7.6; Monocytes # (A) 0.4 k/uL (0-1.0); Monocytes % (A) 5 %; Neutrophils # (A) 4.4 k/uL (1.3-7.7); Neutrophils % (A) 62 %; Platelet Count 217 k/uL (150-450); RDW 15.7 % (11.5-15.5); WBC 7.1 k/uL (3.8-10.6)
[2017-07-16 18:10] LABS: Partial Thromboplastin Time 22.9 sec (22.0-30.0); Prothrombin Time 9.9 sec (9.0-12.0)
[2017-07-16 18:27] LABS: ALT 34 U/L (9-52); AST 24 U/L (14-36); Albumin 3.3 g/dL (3.5-5.0); Alkaline Phosphatase 76 U/L (38-126); Anion Gap 6 mmol/L; Blood Urea Nitrogen 9 mg/dL (7-17); Calcium 8.9 mg/dL (8.4-10.2); Carbon Dioxide 30 mmol/L (22-30); Chloride 103 mmol/L (98-107); Glucose 102 mg/dL (74-99); Lipase 61 U/L (23-300); Magnesium 2.1 mg/dL (1.6-2.3); Potassium 4.5 mmol/L (3.5-5.1); Sodium 139 mmol/L (137-145); Total Bilirubin 0.3 mg/dL (0.2-1.3); Total Protein 6.5 g/dL (6.3-8.2)
[2017-07-16 18:37] LABS: Creatine Kinase MB 1.4 ng/mL (0.0-2.4); Troponin I <0.012 ng/mL (0.000-0.034)
[2017-07-16] MEDS ORDERED: ENALAPRILAT 1.25 MG/ML 1 ML VIAL IVP STA (19:02)
--- NOTE | 2017-07-16 19:18 | XR ---
EXAMINATION TYPE: XR chest 1V DATE OF EXAM: 07/16/2017 COMPARISON: 09/23/2016 HISTORY: 46-year-old female chest pain and altered mental status TECHNIQUE: Single frontal view of the chest is obtained. FINDINGS: Heart upper limits of normal in size. Diffuse interstitial prominence and peribronchial cuffing is un changed. Hazy lower lung densities related to overlying soft tissue. No jie consolidation or signif icant pleural effusion seen. IMPRESSION: Chronic changes, possible chronic bronchitis/asthma. No definite acute process.
[2017-07-16 19:41] LABS: Appearance,Urine Cloudy (Clear); Bacteria,Urine Rare /hpf; Bilirubin,Urine Negative (Negative); Blood,Urine Negative (Negative); Color,Urine Yellow; Glucose,Urine (UA) Negative (Negative); Hyaline Casts,Urine 8 /lpf (0-2); Ketones,Urine Negative (Negative); Leukocyte Esterase,Urine Trace (Negative); Mucus,Urine Many /hpf; Nitrite,Urine Negative (Negative); Protein,Urine Trace (Negative); RBC,Urine 1 /hpf (0-5); Specific Gravity,Urine 1.024 (1.001-1.035); Squamous Epithelial Cell,Urine 14 /hpf (0-4); WBC,Urine 2 /hpf (0-5)
[2017-07-16 19:46] LABS: Urn Cannabinoid Scrn Detected (NotDetected)
[2017-07-16 19:47] LABS: Amphetamine Screen,Urine Detected (NotDetected); Barbiturate Screen,Urine Not Detected (NotDetected); Benzodiazepines Screen,Urine Detected (NotDetected); Cocaine Screen,Urine Not Detected (NotDetected); Methadone Screen, Urine Not Detected (NotDetected); Opiate Screen,Urine Detected (NotDetected); Oxycodone Screen, Urine Not Detected (NotDetected); Phencyclidine Screen,Urine Not Detected (NotDetected); Tricyclic Antidepressant,Urine Not Detected (NotDetected)
[2017-07-16] MEDS ORDERED: KETOROLAC 30 MG/ML 1 ML VIAL IVP STA (19:56)
--- NOTE | 2017-07-16 20:00 | CT ---
EXAMINATION TYPE: CT brain wo con DATE OF EXAM: 07/16/2017 COMPARISON: 11/11/2011 HISTORY: 46-year-old female with visual changes and Confusion. TECHNIQUE: Examination was done in axial plane without intravenous contrast. Coronal and sagittal r econstructions performed. CT DLP: 1022.5 mGycm Automated exposure control for dose reduction was used. FINDINGS: There is no evidence of acute intracranial hemorrhage, acute ischemic changes, mass, mass-effect, or extra-axial fluid collection. There is no effacement of cerebral sulci or basal subarachnoid cister ns. There is no hydrocephalus. There is no midline shift. Gibson-white matter distinction is preserv ed. Some mucosal thickening within the inferior most visualized left maxillary sinus. Mastoid air cells a re well pneumatized. Orbits and globes are intact. IMPRESSION: No acute intracranial abnormality seen.
[2017-07-16] MEDS ORDERED: ACETAMINOPHEN TAB 325 MG TAB PO PRN (20:08)
[2017-07-16] MEDS ORDERED: IBUPROFEN 400 MG TAB PO PRN (20:08)
[2017-07-16] MEDS ORDERED: NALOXONE 0.4 MG/ML 1 ML VIAL IV PRN (20:08)
[2017-07-16] MEDS ORDERED: traMADol 50 MG TAB PO PRN (20:08)
[2017-07-16] MEDS ORDERED: ONDANSETRON 4 MG/2 ML VIAL IVP PRN (20:08)
[2017-07-16] MEDS ORDERED: FUROSEMIDE 40 MG TAB PO PRN (20:11)
[2017-07-16] MEDS ORDERED: traZODone HCL 50 MG TAB PO SCH (21:00)
[2017-07-16 21:09] VITALS: RESP 16
[2017-07-16 21:29] VITALS: BMI 58.0
[2017-07-16] MEDS ORDERED: LORazepam 2 MG/ML INJ IV STA (21:35)
[2017-07-16] MEDS: HYDROmorphone 2 MG/ML 1 ML SYRINGE IVP PRN (21:41)
[2017-07-17] MEDS: HYDROmorphone 2 MG/ML 1 ML SYRINGE IVP PRN ×3 (00:45→09:21)
[2017-07-17 00:52] LABS: Creatine Kinase 54 U/L (30-135)
[2017-07-17 01:04] LABS: Creatine Kinase MB 1.1 ng/mL (0.0-2.4); Troponin I <0.012 ng/mL (0.000-0.034)
[2017-07-17 06:17] LABS: Creatine Kinase MB 1.4 ng/mL (0.0-2.4); Troponin I 0.02 ng/mL (0.000-0.034)
[2017-07-17] MEDS ORDERED: diphenhydrAMINE 50 MG/ML 1 ML VIAL IVP STA (06:19)
[2017-07-17] MEDS ORDERED: LISINOPRIL 20 MG TAB PO SCH (09:00)
[2017-07-17] MEDS ORDERED: NON-FORMULARY DRUG (Lisdexamfetamine Dimesylate [Vyvanse] 50 MG) PO SCH (09:00)
[2017-07-17] MEDS ORDERED: ARIPiprazole 15 MG TAB PO SCH (09:00)
[2017-07-17 09:18] VITALS: BP 101/61; PULSE 100; TEMP 97.6
--- NOTE | 2017-07-18 17:50 | P.HPIM ---
History of Present Illness H&P Date: 07/17/17 Chief Complaint: Multiple dental infections with worsening mouth pain Ms. Neal is a 46 y/o female past medical history of fibromyalgia, hypertension, osteoarthritis, seizure disorder, morbid obesity with BMI of 58 coming into the hospital with a chief complaint of multiple dental infections and worsening mouth pain for the past couple of days. patient states that she has been having multiple dental infections with oral ulcers and has been treated for infection by the nurse practitioner at her family doctor's office. She was given clindamycin that she completed. Patient states that she still has nonhealing ulcers and and her pain has been worse. Patient also mentions that she does not have a place to stay and so is worried about it. Patient has multiple complaints she says yes to be much all the questions I asked her including intermitted episodes of chest pain dizziness shortness of breath. But this has been her baseline due to morbid obesity. She also mentions that her bipolar disorder has been acting up on her. As per the nursing staff report the patient is on the list to be seen by dental doctor as she does not have dental insurance. Review of Systems REVIEW OF SYSTEMS: PSYCH: bipolar disorder NEURO:No c/o weakness of the extremties, No facial droop, No speech abnormalities HEMATOLOGIC: No history of easy bleeding and bruising . No recent infections . RESPIRATORY: No cough, No SOB, No chest discomfort. IMMUNE: No infections INTEGUMENT: no rashes OPHTHALMOLOGIC: No blurry vision and no eye discharge : No dysuria or hematuria CARDIAC: intermittent chest pain , mild shortness of breath , no paroxysmal nocturnal dyspnea MUSCULOSKELETAL : fibromyalgia GI: No abdominal pain, Nausea or vomiting. No constipation or diarrhea. Past Medical History Past Medical History: Fibromyalgia, Hypertension, Osteoarthritis (OA), Seizure Disorder Additional Past Medical History / Comment(s): ddd, neuropathy adhd obesity History of Any Multi-Drug Resistant Organisms: MRSA Date of last positivie culture/infection: 2006 MDRO Source:: arm/skin Past Surgical History: Tubal Ligation Additional Past Surgical History / Comment(s): EGD Past Anesthesia/Blood Transfusion Reactions: No Reported Reaction Additional Past Anesthesia/Blood Transfusion Reaction / Comment(s): Pt has never recieved blood. Smoking Status: Current every day smoker - Past Family History Father Family Medical History: No Reported History Mother Family Medical History: Cancer Additional Family Medical History / Comment(s): Mother at age 56 yrs of lung cancer with brain mets. Medications and Allergies Home Medications Medication Instructions Recorded Confirmed Type ARIPiprazole [Abilify] 30 mg PO DAILY 06/03/14 07/16/17 History Furosemide [Lasix] 40 mg PO DAILY PRN 09/22/16 07/16/17 History traMADol HCL [Ultram] 50 mg PO Q6HR PRN 09/22/16 07/16/17 History Ibuprofen [Motrin] 800 mg PO Q8HR PRN #30 tablet 09/23/16 07/16/17 Rx Lisinopril [Zestril] 20 mg PO DAILY #30 tab 09/23/16 07/16/17 Rx Lisdexamfetamine Dimesylate 50 mg PO DAILY 07/16/17 07/16/17 History [Vyvanse] traZODone HCL 150 mg PO HS 07/16/17 07/16/17 History Allergies Allergy/AdvReac Type Severity Reaction Status Date / Time lamotrigine [From Lamictal] Allergy Rash/Hives Verified 07/16/17 21:11 Penicillins Allergy Anaphylaxis Verified 07/16/17 21:11 sulfamethoxazole Allergy Anaphylaxis Verified 07/16/17 21:11 [From Bactrim] trimethoprim [From Bactrim] Allergy Anaphylaxis Verified 07/16/17 21:11 Physical Exam Vitals: Vital Signs Temp Pulse Pulse Pulse Resp BP BP 07/17/17 12:00 100 16 07/17/17 08:00 97.6 F 100 16 101/61 07/17/17 03:41 16 07/17/17 00:00 16 07/16/17 23:54 98.1 F 87 16 173/76 07/16/17 22:10 16 07/16/17 21:09 97.7 F 66 16 157/92 07/16/17 20:04 69 18 161/90 07/16/17 19:15 60 18 176/84 07/16/17 18:54 69 20 176/102 07/16/17 18:39 62 18 164/89 07/16/17 17:23 67 07/16/17 16:55 97.7 F 74 18 137/92 Pulse Ox 07/17/17 12:00 07/17/17 08:00 92 L 07/17/17 03:41 01/21/18 00:00 07/16/17 23:54 93 L 07/16/17 22:10 07/16/17 21:09 96 07/16/17 20:04 100 07/16/17 19:15 100 07/16/17 18:54 99 07/16/17 18:39 98 07/16/17 17:23 07/16/17 16:55 99 Intake and Output 07/16/17 07/17/17 07/17/17 22:59 06:59 14:59 Other: Voiding Method Bedside Commode # Voids 1 2 Weight 163.2 kg GENERAL EXAM GEN. APPEARANCE: morbidly obese , poorly kempt HEAD EXAM: atraumatic, normocephalic, normal inspection EYE EXAM: normal appearance, PERRL, EOMI. Absent: scleral icterus, conjunctival injection, periorbital swelling ENT EXAM: very poor dental hygiene with multiple caries, multiple ulcers seen through the oral cavity but no signs of active infection. NECK EXAM: normal inspection. Absent: tenderness, meningismus RESPIRATORY EXAM: distant breath sounds CARDIOVASCULAR EXAM: distant heart sounds GI/ABDOMINAL EXAM: soft, normal bowel sounds. Absent: distended, tenderness, guarding, rebound, rigid EXTREMITIES EXAM: chronic venous congestion, lymphedema NEUROLOGICAL EXAM: alert, oriented X3, PSYCHIATRIC EXAM: normal affect, normal mood SKIN EXAM: warm, dry, intact, normal color. Absent: rash Results CBC & Chem 7: 07/16/17 17:51 07/16/17 17:51 Labs: Abnormal Lab Results - Last 24 Hours (Table) 07/16/17 07/16/17 07/16/17 Range/Units 17:51 17:51 19:29 RDW 15.7 H (11.5-15.5) % Glucose 102 H (74-99) mg/dL Albumin 3.3 L (3.5-5.0) g/dL Urine Appearance Cloudy H (Clear) Urine Protein Trace H (Negative) Ur Leukocyte Esterase Trace H (Negative) Ur Squamous Epith Cells 14 H (0-4) /hpf Urine Bacteria Rare H (None) /hpf Hyaline Casts 8 H (0-2) /lpf Urine Mucus Many H (None) /hpf Urine Opiates Screen Detected H (NotDetected) Ur Amphetamines Screen Detected H (NotDetected) U Benzodiazepines Scrn Detected H (NotDetected) U Marijuana (THC) Screen Detected H (NotDetected) Thrombosis Risk Factor Assmnt - Choose All That Apply Each Factor Represents 1 point: Age 41-60 years, Obesity (BMI >25) Thrombosis Risk Factor Assessment Total Risk Factor Score: 2 Thrombosis Risk Factor Assessment Level: Low Risk Assessment and Plan Assessment: Multiple oral ulcers with severe pain requiring IV pain meds - No active infection Atypical chest pain - non cardiac in origin- serial EKGs and troponins within normal limits Fibromyalgia Bipolar disorder Osteoarthritis Hypertension History of seizure disorder Morbid obesity with BMI of 58 Chronic deconditioning PLAN: patient was given IV pain medications with which her dental pain has resolved. No need for antibiotics at this point of time. Psych services have been consulted and they suggested outpatient follow-up. Patient definitely needs to follow up with dental clinic for removal of all the dental caries. Her prognosis is guarded due to multiple chronic medical conditions including morbid obesity. Patient is being discharged home in a stable condition.
--- NOTE | 2017-07-18 17:51 | P.DS ---
Providers Date of admission: 07/16/17 20:11 Attending physician: Yina Cage Consults: 07/16/17 20:09 Consult Physician Routine Consulting Provider: Praveen Cavanaugh Consult Reason/Comments: Bipolar Do you want consulting provider notified?: Yes Primary care physician: Jcarlos Quintero [facility] Course: Ms. Neal is a 46 y/o female past medical history of fibromyalgia, hypertension, osteoarthritis, seizure disorder, morbid obesity with BMI of 58 coming into the hospital with a chief complaint of multiple dental infections and worsening mouth pain for the past couple of days. patient states that she has been having multiple dental infections with oral ulcers and has been treated for infection by the nurse practitioner at her family doctor's office. She was given clindamycin that she completed. Patient states that she still has nonhealing ulcers and and her pain has been worse. Patient also mentions that she does not have a place to stay and so is worried about it. Patient has multiple complaints she says yes to be much all the questions I asked her including intermitted episodes of chest pain dizziness shortness of breath. But this has been her baseline due to morbid obesity. She also mentions that her bipolar disorder has been acting up on her. As per the nursing staff report the patient is on the list to be seen by dental doctor as she does not have dental insurance. DISCHARGE DIAGNOSIS: Multiple oral ulcers with severe pain requiring IV pain meds - No active infection Atypical chest pain - non cardiac in origin- serial EKGs and troponins within normal limits Fibromyalgia Bipolar disorder Osteoarthritis Hypertension History of seizure disorder Morbid obesity with BMI of 58 Chronic deconditioning PLAN: patient was given IV pain medications with which her dental pain has resolved. No need for antibiotics at this point of time. Psych services have been consulted and they suggested outpatient follow-up. Patient definitely needs to follow up with dental clinic for removal of all the dental caries. Her prognosis is guarded due to multiple chronic medical conditions including morbid obesity. Patient is being discharged home in a stable condition. Patient Condition at Discharge: Stable Plan - Discharge Summary New Discharge Prescriptions: Continue ARIPiprazole [Abilify] 30 mg PO DAILY traMADol HCL [Ultram] 50 mg PO Q6HR PRN PRN Reason: Pain Furosemide [Lasix] 40 mg PO DAILY PRN PRN Reason: SWELLING Ibuprofen [Motrin] 800 mg PO Q8HR PRN #30 tablet PRN Reason: Pain Lisinopril [Zestril] 20 mg PO DAILY #30 tab traZODone HCL 150 mg PO HS Lisdexamfetamine Dimesylate [Vyvanse] 50 mg PO DAILY Discharge Medication List ARIPiprazole [Abilify] 30 mg PO DAILY 06/03/14 [History] Furosemide [Lasix] 40 mg PO DAILY PRN 09/22/16 [History] traMADol HCL [Ultram] 50 mg PO Q6HR PRN 09/22/16 [History] Ibuprofen [Motrin] 800 mg PO Q8HR PRN #30 tablet 09/23/16 [Rx] Lisinopril [Zestril] 20 mg PO DAILY #30 tab 09/23/16 [Rx] Lisdexamfetamine Dimesylate [Vyvanse] 50 mg PO DAILY 07/16/17 [History] traZODone HCL 150 mg PO HS 07/16/17 [History] Discharge Disposition: HOME SELF-CARE
== END 2017-07-17 15:25 | disposition home or self-care (01) ==
LOC: EC 16:38 → 3OBS 20:11
PROVIDERS: ADMIT Internal Medicine; ATTEND Internal Medicine
DX: K12.1 Other forms of stomatitis (principal); R07.89 Other chest pain; R42 Dizziness and giddiness; R06.02 Shortness of breath; R41.0 Disorientation, unspecified; M79.7 Fibromyalgia; F31.9 Bipolar disorder, unspecified; M19.90 Unspecified osteoarthritis, unspecified site; I10 Essential (primary) hypertension; G40.909 Epilepsy, unspecified, not intractable, without status epilepticus; E66.01 Morbid (severe) obesity due to excess calories; Z68.43 Body mass index [BMI] 50.0-59.9, adult; G62.9 Polyneuropathy, unspecified; Z79.899 Other long term (current) drug therapy; F17.200 Nicotine dependence, unspecified, uncomplicated; F90.9 Attention-deficit hyperactivity disorder, unspecified type; Z88.0 Allergy status to penicillin; Z88.2 Allergy status to sulfonamides; Z88.8 Allergy status to other drugs, medicaments and biological substances; Z86.14 Personal history of Methicillin resistant Staphylococcus aureus infection; Z80.1 Family history of malignant neoplasm of trachea, bronchus and lung; Z80.8 Family history of malignant neoplasm of other organs or systems
CPT/HCPCS: 96374 ×2; 96375 ×5; 96361 ×3; 99285; 96376; 36415; 83880; 80053; 82550; 82553 ×2; 83690; 83735; 84484 ×2; 85025; 85610; 85730; 81001; 80306; 71045; 70450; G0378 ×2; J2060; J1170 ×2; J1200; J1885; J2270